=== PATIENT | female | born 2000 | race Caucasian/White ===

== ENCOUNTER 2022-07-30 19:44 | Emergency (ER) | payer SELFPAY ==
[~2022-07-30] VITALS: Ht 149.9 cm; Wt 59.1 kg
[2022-07-30] MEDS ORDERED: PNV1TABL77 PO (19:52)
[2022-07-30] MEDS ORDERED: SODIUM CHLORIDE 0.9% 1,000 ML IV ONE (21:00)
[2022-07-30] MEDS ORDERED: METOCLOPRAMIDE HCL 5 MG/ML 2 ML VIAL IVP ONE (21:00)
[2022-07-30 23:07] VITALS: BP 102/68
== END 2022-07-30 23:08 | disposition home or self-care (01) ==
LOC: EMS 19:47
DX: O21.8 Other vomiting complicating pregnancy (principal); Z3A.10 10 weeks gestation of pregnancy
CPT/HCPCS: 99283; 96374; 96361; J2765; J7030